=== PATIENT | male | born 1955 | race Two or more races ===

== ENCOUNTER 2024-07-29 07:11 | Day surgery (SDC) | payer MEDICARE, OTHER ==
[~2024-07-29] VITALS: Ht 182.9 cm; Wt 102.7 kg
[~2024-07-29 07:11] MED LIST: ATOR40TA72 PO; LISI10TA27 PO
[2024-07-29 07:58] VITALS: BP 132/78; PULSE 64; RESP 14
[2024-07-29] MEDS ORDERED: simethicone 40mg/0.6ml oral drops 30ml ONE (08:15)
[2024-07-29] MEDS ORDERED: MIDAZolam 1 MG/ML 5ML VIAL ONE (08:19)
[2024-07-29] MEDS ORDERED: diphenhydrAMINE 50 mg/ml inj ONE (08:19)
[2024-07-29] MEDS ORDERED: fentaNYL/PF 50MCG/1 ML 2ML syringe ONE (08:19)
[2024-07-29 09:39] VITALS: BP 131/82; PULSE 64; RESP 12; O2SAT 99
[2024-07-29 09:49] VITALS: BP 126/75; PULSE 63; RESP 12; O2SAT 100
[2024-07-29 09:59] VITALS: BP 132/79; PULSE 60; RESP 12; O2SAT 98
[2024-07-29 10:09] VITALS: BP 136/82; PULSE 66; RESP 14; O2SAT 98
== END 2024-07-29 10:15 | disposition home or self-care (01) ==
LOC: GI LAB 07:11
PROVIDERS: ATTEND Internal Medicine Gastroenterology
DX: Z12.11 Encounter for screening for malignant neoplasm of colon (principal); I10 Essential (primary) hypertension; E78.5 Hyperlipidemia, unspecified; Z79.899 Other long term (current) drug therapy; Z98.890 Other specified postprocedural states
CPT/HCPCS: 99153; G0121; G0500; J1200; J2250; J3010; J7030; Z7512; 45378; 99152; G0105